=== PATIENT | male | born 1965 | race Caucasian/White ===

== ENCOUNTER 2018-06-24 15:51 | Emergency (ER) | payer OTHER ==
[~2018-06-24] VITALS: Ht 172.7 cm; Wt 90.7 kg
[~2018-06-24 15:51] MED LIST: AZITHROMYCIN 2250 MG; AZOR 10-40 MG1 EACH PO; BLOOD PRESSURE MED; CAMPRAL PO; CODEINE PO; FENOFIBRATE160 MG PO; FLEXERIL PO; FOLIC ACID1 MG PO; HIGH BLOOD PRESSURE PO; IBUPROFEN 800800 M1 PO; MOBIC7.5 MG PO; NAPROSYN500 MG PO; NORCO 5-325 TA1 EACH PO; PROMETHAZINE PO; TESSALON PERLE100 MG PO; TRINATE TABLET1 TAB PO; TUSSICAPS 10 M1 EACH PO; VITAMIN B-1100 M1 PO; ZYRTEC10 MG PO
[2018-06-24 16:12] LABS: ABSOLUTE BASOPHILS 0.1 thou/uL (0.0-0.2); ABSOLUTE EOSINOPHILS 0.1 thou/uL (0.0-0.7); ABSOLUTE LYMPHOCYTES 2.8 thou/uL (0.8-5.3); ABSOLUTE MONOCYTES 0.4 thou/uL (0.0-1.2); ABSOLUTE NEUTROPHILS 5.2 thou/uL (1.6-8.1); BASOPHILS 0.9 %; EOSINOPHILS 0.8 %; HEMATOCRIT 45.5 % (42.0-52.0); HEMOGLOBIN 15.3 gm/dL (14.0-18.0); MCH 28.8 pg (26.0-34.0); MCHC 33.7 g/dL (28.0-37.0); MCV 85.3 fL (80.0-100.0); MONOCYTES 5.2 %; MPV 7.9 fl. (7.2-11.1); NUCLEATED RBCS 0 /100WBC; PLATELET COUNT* 363 thou/uL (150-400); POLYS 60.1 %; RBC 5.34 mil/uL (4.50-6.00); RDW-CV 15.1 % (10.5-14.5); WBC 8.6 thou/uL (4.0-11.0)
[2018-06-24 16:26] LABS: APTT 22.4 Seconds (25.0-31.3); PROTIME 10.3 Seconds (9.20-11.50)
[2018-06-24 16:33] LABS: ANION GAP 11 mmol/L (7-16); BUN 14 mg/dL (7-18); CALCIUM 8.5 mg/dL (8.5-10.1); CHLORIDE 103 mmol/L (98-107); CO2 26 mmol/L (21-32); CREATININE 1.1 mg/dL (0.6-1.3); GLUCOSE 119 mg/dL (70-99); POTASSIUM 3.5 mmol/L (3.5-5.1); SODIUM 140 mmol/L (136-145)
[2018-06-24 16:44] LABS: ALBUMIN 4.1 g/dL (3.4-5.0); ALKALINE PHOSPHATASE 47 U/L (46-116); NT-PRO BRAIN NAT PEPTIDE 45 pg/mL (<300); SGOT 36 U/L (15-37); SGPT 34 U/L (30-65); TOTAL BILIRUBIN 0.3 mg/dL (<0.1-1.0); TOTAL PROTEIN 8.2 g/dL (6.4-8.2); TROPONIN-I LEVEL <0.06 ng/mL (<0.06)
[2018-06-24] MEDS ORDERED: ATIVAN0.5 MG PO (16:53)
[2018-06-24 17:40] VITALS: BP 150/93
--- NOTE | 2018-06-25 11:14 | EKG ---
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 : 1965 Requested By: Oleg Pavon Order Number: [id number] MD: Hugo Wing Measurements Intervals [place] Rate: 100 P: 69 CT: 200 QRS: 85 QRSD: 101 T: 55 QT: 338 QTc: 436 Interpretive Statements Sinus tachycardia Borderline prolonged CT interval Probable left atrial enlargement Baseline wander in lead(s) V1 Compared to ECG 08/21/2016 16:43:00 T-wave abnormality no longer present Electronically Signed On 06-25-2018 11:14:06 CDT by Hugo Wing [email or web address] <ELECTRONICALLY SIGNED> By: Hugo Wing MD, FACC 06/25/18 1114 1647 1647 Hugo Wing MD, [facility] /EPI
== END 2018-06-24 17:43 | disposition home or self-care (01) ==
LOC: M.ERS 15:51
PROVIDERS: Family Medicine
DX: F10.129 Alcohol abuse with intoxication, unspecified (principal); Y90.9 Presence of alcohol in blood, level not specified; I10 Essential (primary) hypertension; E78.00 Pure hypercholesterolemia, unspecified; M54.9 Dorsalgia, unspecified; G89.29 Other chronic pain; F17.210 Nicotine dependence, cigarettes, uncomplicated

== ENCOUNTER 2018-08-28 09:12 | Emergency (ER) | payer BC ==
[~2018-08-28] VITALS: Ht 180.3 cm; Wt 105.2 kg
[~2018-08-28 09:12] MED LIST changes: +ATIVAN0.5 MG PO
[2018-08-28 09:54] LABS: ABSOLUTE EOSINOPHILS 0.1 thou/uL (0.0-0.7); ABSOLUTE LYMPHOCYTES 2.3 thou/uL (0.8-5.3); ABSOLUTE MONOCYTES 0.7 thou/uL (0.0-1.2); ABSOLUTE NEUTROPHILS 6.9 thou/uL (1.6-8.1); BASOPHILS 0.4 %; EOSINOPHILS 0.7 %; HEMATOCRIT 38.7 % (42.0-52.0); HEMOGLOBIN 13.1 gm/dL (14.0-18.0); LYMPHOCYTES 22.9 %; MCH 29.4 pg (26.0-34.0); MCHC 33.8 g/dL (28.0-37.0); MCV 86.8 fL (80.0-100.0); MONOCYTES 6.9 %; MPV 7.6 fl. (7.2-11.1); NUCLEATED RBCS 0 /100WBC; PLATELET COUNT* 357 thou/uL (150-400); POLYS 69.1 %; RBC 4.46 mil/uL (4.50-6.00); RDW-CV 14.4 % (10.5-14.5); WBC 9.9 thou/uL (4.0-11.0)
[2018-08-28 10:05] LABS: ANION GAP 12 mmol/L (7-16); BUN 13 mg/dL (7-18); CALCIUM 7.7 mg/dL (8.5-10.1); CHLORIDE 102 mmol/L (98-107); CO2 25 mmol/L (21-32); GLUCOSE 108 mg/dL (70-99); POTASSIUM 3.1 mmol/L (3.5-5.1); SODIUM 139 mmol/L (136-145)
[2018-08-28 10:22] LABS: ALBUMIN 3.2 g/dL (3.4-5.0); ALKALINE PHOSPHATASE 44 U/L (46-116); LIPASE 278 U/L (73-393); MAGNESIUM 1.6 mg/dL (1.8-2.4); NT-PRO BRAIN NAT PEPTIDE 156 pg/mL (<300); SGOT 39 U/L (15-37); SGPT 34 U/L (30-65); TOTAL BILIRUBIN 0.3 mg/dL (<0.1-1.0); TOTAL PROTEIN 6.6 g/dL (6.4-8.2); TROPONIN-I LEVEL <0.06 ng/mL (<0.06)
[2018-08-28 12:57] VITALS: BP 110/74
--- NOTE | 2018-08-28 14:30 | EKG ---
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 : 1965 Requested By: Jori Toney Order Number: [id number] MD: Natalio Cortés Measurements Intervals [place] Rate: 108 P: 60 [place]: 189 QRS: 77 QRSD: 92 T: 50 QT: 336 QTc: 451 Interpretive Statements Sinus tachycardia Probable left atrial enlargement Compared to ECG 06/24/2018 16:47:51 No significant changes Electronically Signed On 08-28-2018 14:30:19 SNOW RANGER by Natalio Cortés [email or web address] <ELECTRONICALLY SIGNED> By: Natalio Cortés MD, [facility] 08/28/18 1430 0915 4 Natalio Cortés MD, FACC /EPI
--- NOTE | 2018-08-28 14:32 | EKG ---
[place] [address] ELECTROCARDIOGRAM REPORT Name: JENNANishaMINOO Baldemar Room: 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
== END 2018-08-28 12:57 | disposition home or self-care (01) ==
LOC: M.ERS 09:12
PROVIDERS: Emergency Medicine Emergency Medical Services
DX: R07.89 Other chest pain (principal); I10 Essential (primary) hypertension; E78.00 Pure hypercholesterolemia, unspecified; G89.29 Other chronic pain; M54.9 Dorsalgia, unspecified; F17.210 Nicotine dependence, cigarettes, uncomplicated

== ENCOUNTER 2018-08-29 10:38 | Emergency (ER) | payer BC ==
[~2018-08-29] VITALS: Ht 180.3 cm; Wt 102.1 kg
[2018-08-29 11:04] LABS: URINE BILIRUBIN NEGATIVE (Negative); URINE BLOOD NEGATIVE (Negative); URINE CLARITY CLEAR; URINE COLOR YELLOW; URINE GLUCOSE-RANDOM NEGATIVE (Negative); URINE KETONES NEGATIVE (Negative); URINE LEUKOCYTES-REFLEX NEGATIVE (Negative); URINE NITRITE-REFLEX NEGATIVE (Negative); URINE PROTEIN NEGATIVE (Negative); URINE SPECIFIC GRAVITY <= 1.005 (1.005-1.030); URINE UROBILINOGEN 0.2 E.U./dl (0.2-1.0)
[2018-08-29 11:14] LABS: AMP/METHAMP Negative (Negative); BARBITURATES Negative (Negative); BENZODIAZEPINES Negative (Negative); COCAINE Negative (Negative); METHADONE Negative (Negative); OPIATES Negative (Negative); PCP Negative (Negative); THC Negative (Negative)
[2018-08-29 12:07] LABS: ABSOLUTE BASOPHILS 0.1 thou/uL (0.0-0.2); ABSOLUTE EOSINOPHILS 0.1 thou/uL (0.0-0.7); ABSOLUTE MONOCYTES 0.7 thou/uL (0.0-1.2); ABSOLUTE NEUTROPHILS 5.1 thou/uL (1.6-8.1); HEMATOCRIT 39.3 % (42.0-52.0); HEMOGLOBIN 13.3 gm/dL (14.0-18.0); MCH 29.5 pg (26.0-34.0); MCHC 33.8 g/dL (28.0-37.0); MCV 87.2 fL (80.0-100.0); MONOCYTES 8.5 %; MPV 7.4 fl. (7.2-11.1); NUCLEATED RBCS 0 /100WBC; PLATELET COUNT* 335 thou/uL (150-400); POLYS 64.5 %; RBC 4.51 mil/uL (4.50-6.00); RDW-CV 14.3 % (10.5-14.5); WBC 7.9 thou/uL (4.0-11.0)
[2018-08-29 12:20] LABS: ALCOHOL 282 mg/dL (<10); SALICYLATE < 2.8 mg/dL (2.8-20.0)
[2018-08-29 12:21] LABS: ACETAMINOPHEN < 2 ug/mL (10-30)
[2018-08-29 12:35] LABS: CALCIUM 8.7 mg/dL (8.5-10.1); POTASSIUM 3.6 mmol/L (3.5-5.1)
[2018-08-29 12:39] LABS: ALBUMIN 3.2 g/dL (3.4-5.0); TOTAL BILIRUBIN 0.2 mg/dL (<0.1-1.0); TOTAL PROTEIN 6.7 g/dL (6.4-8.2)
[2018-08-29 18:32] VITALS: BP 157/63
== END 2018-08-29 18:44 | disposition home or self-care (01) ==
LOC: M.ERS 10:38
PROVIDERS: Family Medicine
DX: F10.129 Alcohol abuse with intoxication, unspecified (principal); I10 Essential (primary) hypertension; E78.00 Pure hypercholesterolemia, unspecified; M54.9 Dorsalgia, unspecified; G89.29 Other chronic pain; F17.210 Nicotine dependence, cigarettes, uncomplicated

== ENCOUNTER → 2018-12-30 | Outpatient (CLI) | payer BC | LOC: M.MRI 16:54 | DX: M47.26 Other spondylosis with radiculopathy, lumbar region (principal); M51.16 Intervertebral disc disorders with radiculopathy, lumbar region; M51.27 Other intervertebral disc displacement, lumbosacral region; M48.062 Spinal stenosis, lumbar region with neurogenic claudication ==

== ENCOUNTER → 2019-02-10 | Outpatient (CLI) | payer BC ==
[~2019-02-10] MED LIST changes: +AMLODIPINE BESY10 MG PO; +FOLTX TABLET1 EAC1 PO; +LIPITOR 20 MG T20 M1 PO
== END ==
LOC: M.PC 10:10
DX: M51.37 Other intervertebral disc degeneration, lumbosacral region (principal); M48.07 Spinal stenosis, lumbosacral region; F17.210 Nicotine dependence, cigarettes, uncomplicated; I10 Essential (primary) hypertension

== ENCOUNTER 2020-03-13 17:39 | Emergency (ER) | payer BC ==
[~2020-03-13] VITALS: Ht 175.3 cm; Wt 104.3 kg
[2020-03-13 17:51] VITALS: BP 140/64
[2020-03-13] MEDS ORDERED: FLEXERIL PO (18:03)
[2020-03-13] MEDS ORDERED: MEDROLDOSEPACK PO (18:03)
[2020-03-13] MEDS ORDERED: LIDODERM1 EACH TRANSDERM (18:03)
== END 2020-03-13 18:14 | disposition home or self-care (01) ==
LOC: M.ERS 17:39
DX: M54.5 Low back pain (principal); I10 Essential (primary) hypertension; E78.00 Pure hypercholesterolemia, unspecified; G89.29 Other chronic pain; F17.210 Nicotine dependence, cigarettes, uncomplicated

== ENCOUNTER 2020-04-17 06:19 | Emergency (ER) | payer BC ==
[~2020-04-17] VITALS: Ht 177.8 cm; Wt 124.7 kg
[~2020-04-17 06:19] MED LIST changes: +LIDODERM1 EACH TRANSDERM; +MEDROLDOSEPACK PO
[2020-04-17] MEDS ORDERED: GENTAK5 ML INTRAOCULR (06:47)
[2020-04-17 06:58] VITALS: BP 162/84
== END 2020-04-17 07:01 | disposition home or self-care (01) ==
LOC: M.ERS 06:19
DX: H10.9 Unspecified conjunctivitis (principal); I10 Essential (primary) hypertension; E78.00 Pure hypercholesterolemia, unspecified; G89.29 Other chronic pain; F17.210 Nicotine dependence, cigarettes, uncomplicated